=== PATIENT | male | born 1945 | race Caucasian/White ===

== ENCOUNTER 2016-09-09 21:40 | Emergency (ER) | payer MEDICARE, OTHER ==
--- NOTE | 2016-09-09 22:51 | ED Physician Documentation ---
History of Present Illness - Stated complaint Stated Complaint: VOMITING/DIZZY - Chief complaint Chief Complaint: Neuro - History obtained from History obtained from: Patient - History of Present Illness Timing: How many hours ago (approximately 1 hour [employer]ODUCTION [employer]ONE [employer]) Pain level max: 0 Pain level now: 0 Improved by: rest Worsened by: standing, ambulating - Additonal information Additional information: c/o sudden onset dizziness/lightheadedness, nausea, emesis, generalized weakness. Onset while at rest watching TV at home. Review of Systems Constitutional: reports: Reviewed and negative Eyes: reports: Reviewed and negative Cardiac: reports: Reviewed and negative Respiratory: reports: Reviewed and negative GI: reports: Nausea, Vomiting. denies: Abdominal Pain : denies: Dysuria, Frequency Musculoskeletal: reports: Reviewed and negative Neurologic: reports: Generalized weakness. denies: Focal weakness, Numbness, Syncope, Headache PD PAST MEDICAL HISTORY - Past Medical History Past Medical History: No - Past Surgical History Past Surgical History: No - Allergies Allergies/Adverse Reactions: Allergies Allergy/AdvReac Type Severity Reaction Status Date / Time codeine Allergy Anaphylaxis Verified 09/09/16 21:51 - Living Situation Living Situation: reports: With spouse/s.o. 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, No motor deficit, No sensory deficit, Normal speech Results - Vitals Vitals: Vital Signs - 24 hr 09/09/16 09/09/16 09/09/16 21:48 23:22 23:55 Temperature 35.6 C L Heart Rate 58 L 62 Respiratory 16 21 19 Rate Blood Pressure 136/72 H 132/62 H O2 Saturation 100 99 09/10/16 00:30 Temperature Heart Rate 71 Respiratory 16 Rate Blood Pressure 155/69 H O2 Saturation 99 Oxygen O2 Source Room air - EKG (time done) No standard instances Rate: Rate (enter#) (58) Rhythm: NSR Fletcher: Normal Intervals: Normal NC QRS: Normal Ischemia: Normal ST segments - Labs Labs: Laboratory Tests 09/09/16 09/09/16 09/09/16 22:30 22:30 22:30 WBC 5.5 RBC 4.15 L Hgb 12.5 L Hct 36.1 L MCV 87.1 MCH 30.0 MCHC 34.5 RDW 15.3 H Plt Count 188 MPV 7.5 Neut # 3.9 Lymph # 1.1 L [place] # 0.3 Eos # 0.1 Baso # 0.0 Absolute Nucleated RBC 0.00 Nucleated RBCs 0.1 Sodium 141 Potassium 3.5 Chloride 106 Carbon Dioxide 27 Anion Gap 8.0 BUN 18 Creatinine 0.9 Estimated GFR (MDRD) 84 L Glucose 124 H Calcium 9.0 Total Bilirubin 0.5 AST 23 ALT 23 Alkaline Phosphatase 77 Troponin I < 0.04 Total Protein 6.6 L Albumin 4.2 Globulin 2.4 Albumin/Globulin Ratio 1.8 Lipase 32 - Rads (name of study) chest xray Radiology: Prelim report reviewed, See rad report PD MEDICAL DECISION MAKING - ED course Complexity details: reviewed results, re-evaluated patient, considered differential, d/w patient Departure - Departure Disposition: 01 Home, Self Care Clinical Impression: Near syncope Condition: Good Instructions: ED Near Syncope Unkn Follow-Up: Cam Moore MD [Primary Care Provider] - Discharge Date/Time: 09/10/16 00:37
[2016-09-09 22:55] LABS: BASOPHILS % (AUTO) 0.5 %; EOSINOPHILS # (AUTO) 0.1 10^3/uL (0.0-0.7); EOSINOPHILS % (AUTO) 1.2 %; HCT - HEMATOCRIT 36.1 % (42.0-52.0); HGB - HEMOGLOBIN 12.5 g/dL (14.0-18.0); LYMPHOCYTES # (AUTO) 1.1 10^3/uL (1.5-3.5); LYMPHOCYTES % (AUTO) 20.1 %; MEAN CORPUSCULAR HGB CONC 34.5 g/dL (32.0-36.0); MEAN CORPUSCULAR VOLUME 87.1 fL (80.0-94.0); MEAN PLATELET VOLUME 7.5 fL (7.4-11.4); MONOCYTES # (AUTO) 0.3 10^3/uL (0.0-1.0); MONOCYTES % (AUTO) 6.2 %; NEUTROPHILS # (AUTO) 3.9 10^3/uL (1.5-6.6); NUCLEATED RED BLOOD CELLS AUTO 0.1 /100WBC; RED BLOOD COUNT 4.15 10^6/uL (4.70-6.10); RED CELL DISTRIBUTION WIDTH 15.3 % (12.0-15.0); UNCORRECTED WHITE BLOOD COUNT 5.5 x10^3/uL; WHITE BLOOD COUNT 5.5 x10^3/uL (4.8-10.8)
[2016-09-09 23:05] LABS: ALBUMIN/GLOBULIN RATIO 1.8 (1.0-2.2); BILIRUBIN,TOTAL 0.5 mg/dL (0.2-1.0); CREATININE 0.9 mg/dL (0.6-1.2); POTASSIUM 3.5 mmol/L (3.5-5.0); TOTAL PROTEIN 6.6 g/dL (6.7-8.2)
--- NOTE | 2016-09-09 23:56 | XRAY Preliminary Report ---
Exam: XR Chest 2 View PA/LAT IMPRESSION: Normal 2-view chest radiography. [facility] SITE ID: [id number]
--- NOTE | 2016-09-09 23:59 | XRAY Report ---
EXAM: CHEST RADIOGRAPHY EXAM DATE: 09/09/2016 11:49 PM. CLINICAL HISTORY: Near-syncope. COMPARISON: None. TECHNIQUE: 2 views. FINDINGS: Lungs/Pleura: No focal opacities evident. No pleural effusion. No pneumothorax. Normal volumes. Mediastinum: Heart and mediastinal contours are unremarkable. Other: No compression fractures. IMPRESSION: Normal 2-view chest radiography. [facility] Referring Provider Line: [phone] SITE ID: [id number]
[2016-09-10 00:31] VITALS: BP 155/69
== END 2016-09-10 00:37 | disposition home or self-care (01) ==
LOC: ED 21:40
DX: R55 Syncope and collapse (principal)
CPT/HCPCS: 36415; 71020; 80053; 83690; 84484; 85025; 93005; 99283; 99284